=== PATIENT | female | born 1990 | race Caucasian/White ===

== ENCOUNTER 2017-05-18 00:46 | Observation (INO) | payer MEDICAID ==
[~2017-05-18] VITALS: Ht 157.5 cm; Wt 90.7 kg
[2017-05-18 01:30] LABS: APPEARANCE,URINE Cloudy (CLEAR); BILIRUBIN,URINE Negative (NEGATIVE); COLOR,URINE Yellow (YELLOW); GLUCOSE, URINE (UA) Negative (NEGATIVE); KETONES,URINE Negative (NEGATIVE); LEUKOCYTE ESTERASE ,URINE Moderate (NEGATIVE); NITRATE,URINE Negative (NEGATIVE); OCCULT BLOOD,URINE Negative (NEGATIVE); PH,URINE 6.5 (5.0-8.0); PROTEIN,URINE Negative (NEGATIVE); UROBILINOGEN,URINE 0.2 mg/dL (0.2-1.0)
[2017-05-18 01:43] LABS: BACTERIA,URINE Many /HPF (None Seen); RBC,URINE None Seen /HPF (0-1); SQUAMOUS EPITHELIAL CELL,UR Many /LPF (0-2)
== END 2017-05-18 02:00 | disposition home or self-care (01) ==
LOC: EDH 00:46 → LDH 01:08
PROVIDERS: ADMIT Obstetrics & Gynecology; ATTEND Obstetrics & Gynecology
DX: O26.893 Other specified pregnancy related conditions, third trimester (principal); O75.82 Onset (spontaneous) of labor after 37 completed weeks of gestation but before 39 completed weeks gestation, with delivery by (planned) cesarean section; R10.30 Lower abdominal pain, unspecified; Z3A.37 37 weeks gestation of pregnancy
CPT/HCPCS: 81001; 99285; G0378

== ENCOUNTER 2017-06-02 10:45 | Inpatient (IN) | payer MEDICAID ==
[~2017-06-02] VITALS: Ht 157.5 cm; Wt 93.4 kg
[2017-06-02 12:29] LABS: HEMATOCRIT 31.5 % (36-48); MEAN CORPUSCULAR HEMOGLOBIN 24.8 pg (27.0-33.0); PLATELET COUNT (AUTO) 241 K/uL (130-400); RED CELL DISTRIBUTION WIDTH 18.3 % (11.0-15.5); WHITE BLOOD COUNT (AUTO) 8.4 K/uL (4.8-10.8)
[2017-06-03] MEDS ORDERED: CEFAZOLIN SODIUM 1 GM VIAL IVP PRN (06:00)
[2017-06-03] MEDS: LACTATED RINGERS 1000ML 1,000 ML IV SCH (06:20)
[2017-06-03] MEDS ORDERED: EPHEDRINE-NS PF 50MG/5ML SYRINGE IV ONE (06:41)
[2017-06-03] MEDS ORDERED: FENTANYL CITRATE PF 50 MCG/1 ML 2ML VIAL ONE (06:59)
[2017-06-03] MEDS ORDERED: ONDANSETRON HCL 4 MG/2 ML VIAL ONE (07:03)
[2017-06-03] MEDS ORDERED: OXYTOCIN 10 UNIT/1ML 10ML VIAL ONE (07:03)
[2017-06-03] MEDS ORDERED: DEXAMETHASONE SOD PHOSPHATE 10MG/ML 1ML VIAL ONE (07:10)
[2017-06-03] MEDS ORDERED: OXYTOCIN 10 USP UNITS/ML ONE (07:41)
[2017-06-03 08:59] VITALS: BP 121/78
[2017-06-03 10:22] LABS: HEPATITIS Bs ANTIGEN SCREEN P Negative (Negative)
[2017-06-03 11:13] VITALS: BP 128/77
[2017-06-03] MEDS ORDERED: OXYTOCIN-LR 20 UNITS/1000 ML 1,000 ML IV PRN (12:22)
[2017-06-03] MEDS ORDERED: MEPERIDINE-PF 75 MG/ML SYG IM PRN (12:30)
[2017-06-03] MEDS ORDERED: SODIUM CHLORIDE 0.9% 10 ML VIAL IVP PRN (12:30)
[2017-06-03] MEDS ORDERED: PROMETHAZINE HCL 25 MG/ML 1ML AMPULE IM PRN ×2 (12:30→13:00)
[2017-06-03] MEDS ORDERED: MORPHINE SULFATE 2 MG/ML 1ML SYG IVP PRN (13:00)
[2017-06-03] MEDS ORDERED: EPHEDRINE SULFATE 50 MG/ML AMPULE IVP PRN (13:00)
[2017-06-03] MEDS ORDERED: HYDROCODONE/ACETAMINOPHEN 5/325 MG TAB PO PRN (13:00)
[2017-06-03] MEDS ORDERED: METOCLOPRAMIDE 10 MG/2 ML VIAL IVP PRN (13:00)
[2017-06-03] MEDS ORDERED: ONDANSETRON HCL 4 MG/2 ML 8 MG in SODIUM CHLORIDE 0.9% 50 ML IVP NR (13:00)
[2017-06-03] MEDS ORDERED: NALOXONE HCL 0.4 MG/1 ML ML IVP PRN (13:00)
[2017-06-03] MEDS ORDERED: ONDANSETRON HCL 4 MG/2 ML VIAL IVP PRN ×2 (13:00)
[2017-06-03] MEDS ORDERED: DiphenhydrAMINE HCL 50 MG/ML VIAL IVP PRN (13:00)
[2017-06-03] MEDS: DEXTROSE 5 %-0.45 % NACL 1,000 ML IV PRN ×2 (15:29→22:51)
[2017-06-03 15:56] VITALS: BP 121/63
[2017-06-03] MEDS ORDERED: PNV1TABL17 PO (18:52)
[2017-06-03] MEDS: FLU VACC QS2017-18 36MOS UP/PF 60 MCG/0.5 ML ML IM NR (19:02)
[2017-06-03] MEDS: HYDROCODONE/ACETAMINOPHEN 5/325 MG TAB PO PRN (19:03)
[2017-06-03 20:00] VITALS: BP 105/68
[2017-06-03 23:31] VITALS: BP 128/73
[2017-06-04 03:00] VITALS: BP 137/75
[2017-06-04] MEDS: HYDROCODONE/ACETAMINOPHEN 5/325 MG TAB PO PRN ×2 (03:05→23:33)
[2017-06-04 05:30] LABS: HEMATOCRIT 27.2 % (36-48); MEAN CORPUSCULAR HGB CONC 32.1 g/dL (32.0-36.0); MEAN CORPUSCULAR VOLUME 74.6 fL (79-99); PLATELET COUNT (AUTO) 232 K/uL (130-400); RED BLOOD CELL COUNT(AUTO) 3.64 MIL/uL (4.00-5.50); RED CELL DISTRIBUTION WIDTH 18.4 % (11.0-15.5); WHITE BLOOD COUNT (AUTO) 11.7 K/uL (4.8-10.8)
[2017-06-04] MEDS: DEXTROSE 5 %-0.45 % NACL 1,000 ML IV PRN (05:30)
[2017-06-04] MEDS: LACTATED RINGERS 1000ML 1,000 ML IV SCH ×2 (06:00→22:00)
[2017-06-04 07:48] VITALS: BP 114/73
[2017-06-04] MEDS ORDERED: ACETAMINOPHEN EXTRA STRENGTH 500 MG TABLET PO PRN (08:00)
[2017-06-04] MEDS ORDERED: BISACODYL 10 MG SUPP.RECT RC PRN (08:00)
[2017-06-04] MEDS ORDERED: LANOLIN 30GM OINTMENT TP PRN (08:00)
[2017-06-04] MEDS: ACETAMINOPHEN-CODEINE 300/30MG TAB PO PRN ×2 (08:57→18:32)
[2017-06-04] MEDS: SIMETHICONE 80 MG TAB.CHEW PO PRN ×2 (08:57→21:21)
[2017-06-04] MEDS: DOCUSATE SODIUM 100 MG CAP PO SCH ×2 (08:58→21:21)
[2017-06-04] MEDS: DIPH,PERTUSS(ACELL),TET VAC/PF 0.5 ML VIAL IM SCH (08:58)
[2017-06-04 11:29] VITALS: BP 122/65
[2017-06-04] MEDS: FLU VACC QS2017-18 36MOS UP/PF 60 MCG/0.5 ML ML IM NR (11:45)
[2017-06-04] MEDS: IBUPROFEN 600 MG TABLET PO PRN (14:06)
[2017-06-04 16:00] VITALS: BP 122/80
[2017-06-04 20:10] VITALS: BP 116/79
[2017-06-04 23:31] VITALS: BP 110/70
[2017-06-05] MEDS: FLU VACC QS2017-18 36MOS UP/PF 60 MCG/0.5 ML ML IM NR (01:36)
[2017-06-05] MEDS: LACTATED RINGERS 1000ML 1,000 ML IV SCH ×3 (01:37→07:36)
[2017-06-05] MEDS: DIPH,PERTUSS(ACELL),TET VAC/PF 0.5 ML VIAL IM SCH (01:38)
[2017-06-05 03:06] VITALS: BP 130/63
[2017-06-05] MEDS: IBUPROFEN 600 MG TABLET PO PRN ×2 (04:11→09:43)
[2017-06-05 07:36] VITALS: BP 126/72
[2017-06-05] MEDS: DOCUSATE SODIUM 100 MG CAP PO SCH (09:42)
[2017-06-05] MEDS: SIMETHICONE 80 MG TAB.CHEW PO PRN (09:42)
== END 2017-06-05 12:00 | disposition home or self-care (01) | DRG 540 ==
LOC: EDSTATUS 10:45 → LDH 06-03 05:40 → WSH 06-03 08:58
PROVIDERS: ADMIT Obstetrics & Gynecology; ATTEND Obstetrics & Gynecology
PROC: 3E0234Z Introduction of Serum, Toxoid and Vaccine into Muscle, Percutaneous Approach (ICD-10-PCS; 2017-06-03)
PROC: 3E0234Z Introduction of Serum, Toxoid and Vaccine into Muscle, Percutaneous Approach (ICD-10-PCS; 2017-06-03)
PROC: 10D00Z1 Extraction of Products of Conception, Low, Open Approach (ICD-10-PCS; principal; 2017-06-03 07:00)
DX: O34.211 Maternal care for low transverse scar from previous cesarean delivery (principal); O99.824 Streptococcus B carrier state complicating childbirth; Z37.0 Single live birth; Z3A.39 39 weeks gestation of pregnancy; Z23 Encounter for immunization
CPT/HCPCS: 36415; 59510; 85027; 86592; 86850; 86900; 86901; 87340; 90715; A4344; A4450; A4606; J0690; J1100; J2405; J2590; J3010; J3490; J7120; Q2038

== ENCOUNTER 2017-06-08 13:55 | Emergency (ER) | payer MEDICAID ==
[~2017-06-08 13:55] MED LIST: PNV1TABL17 PO
== END 2017-06-08 14:55 | disposition home or self-care (01) ==
LOC: EDH 13:55
DX: O90.89 Other complications of the puerperium, not elsewhere classified (principal); S86.911A Strain of unspecified muscle(s) and tendon(s) at lower leg level, right leg, initial encounter; Z79.899 Other long term (current) drug therapy; X58.XXXA Exposure to other specified factors, initial encounter; Y93.89 Activity, other specified; Y92.89 Other specified places as the place of occurrence of the external cause; Y99.8 Other external cause status
CPT/HCPCS: 93971

== ENCOUNTER 2017-06-12 12:26 | Inpatient (IN) | payer MEDICAID ==
[~2017-06-12] VITALS: Ht 157.5 cm; Wt 84.0 kg
[2017-06-12] MEDS ORDERED: ENOXAPARIN SODIUM 100 MG/1 ML SQ ONE (14:33)
[2017-06-12 14:38] LABS: BASOPHILS % (AUTO) 0.9 % (0.0-5.0); EOSINOPHILS % (AUTO) 0.7 % (0.0-8.0); HEMATOCRIT 33.6 % (36-48); LYMPHOCYTES % (AUTO) 28.3 % (21.0-51.0); MEAN CORPUSCULAR HEMOGLOBIN 23.7 pg (27.0-33.0); MEAN CORPUSCULAR HGB CONC 31.9 g/dL (32.0-36.0); MEAN CORPUSCULAR VOLUME 74.2 fL (79-99); MONOCYTES % (AUTO) 6.3 % (3.0-13.0); NEUTROPHILS % (AUTO) 63.8 % (40.0-77.0); NUCLEATED RED BLOOD CELLS 0.1 % (0.0-0.19); PLATELET COUNT (AUTO) 378 K/uL (130-400); RED BLOOD CELL COUNT(AUTO) 4.53 MIL/uL (4.00-5.50); RED CELL DISTRIBUTION WIDTH 18.8 % (11.0-15.5)
[2017-06-12 14:50] LABS: CREATININE 0.7 mg/dL (0.5-1.5); POTASSIUM 3.6 mmol/L (3.5-5.1)
[2017-06-12 14:58] LABS: INR 0.97 (0.85-1.15); PARTIAL THROMBOPLASTIN TIME 27.9 SEC (26.3-35.5); PROTHROMBIN TIME 10.2 SEC (9.6-11.6)
[2017-06-12] MEDS ORDERED: ACETAMINOPHEN-CODEINE 300/30MG TAB PO PRN (15:00)
[2017-06-12] MEDS ORDERED: MORPHINE SULFATE 2 MG/ML 1ML SYG IV PRN (15:00)
[2017-06-12 15:33] VITALS: BP 130/76
[2017-06-12 19:19] VITALS: BP 129/69
[2017-06-12 23:00] VITALS: BP 112/74
[2017-06-12] MEDS: ENOXAPARIN SODIUM 80 MG/0.8 ML SQ SCH (23:09)
[2017-06-13] VITALS (7 sets, daily range): BP systolic 119–145; BP diastolic 69–92
[2017-06-13] MEDS ORDERED: IOPAMIDOL-370 75 ML VIAL IV ONE (03:54)
[2017-06-13] MEDS: PANTOPRAZOLE SODIUM 40 MG TABLET.DR PO SCH (09:37)
[2017-06-13] MEDS: ENOXAPARIN SODIUM 80 MG/0.8 ML SQ SCH (09:37)
[2017-06-13] MEDS ORDERED: APIXABAN 5 MG TABLET PO SCH ×2 (12:00→21:00)
[2017-06-14] VITALS: BP 119/76
[2017-06-14 04:05] VITALS: BP 128/75
[2017-06-14] MEDS: PANTOPRAZOLE SODIUM 40 MG TABLET.DR PO SCH (06:37)
[2017-06-14 07:00] VITALS: BP 112/59
[2017-06-14 07:22] LABS: APPEARANCE,URINE Cloudy (CLEAR); BILIRUBIN,URINE Negative (NEGATIVE); COLOR,URINE Dark Yellow (YELLOW); GLUCOSE, URINE (UA) Negative (NEGATIVE); KETONES,URINE Negative (NEGATIVE); LEUKOCYTE ESTERASE ,URINE Moderate (NEGATIVE); NITRATE,URINE Negative (NEGATIVE); OCCULT BLOOD,URINE Large (NEGATIVE); PH,URINE 5.5 (5.0-8.0); PROTEIN,URINE Negative (NEGATIVE)
[2017-06-14 07:28] LABS: BACTERIA,URINE Few /HPF (None Seen); MUCUS,URINE Rare LPF (None Seen); RBC,URINE 0-1 /HPF (0-1); SQUAMOUS EPITHELIAL CELL,UR Few /LPF (0-2); WBC,URINE >100 /HPF (0-1)
[2017-06-14 11:00] VITALS: BP 123/73
[2017-06-14] MEDS ORDERED: PANT40TA PO (11:06)
[2017-06-14] MEDS ORDERED: APIX5TAB PO (11:06)
[2017-06-14 16:00] VITALS: BP 119/74
[2017-06-14] MEDS ORDERED: CEFD300C3 PO (17:15)
== END 2017-06-14 19:05 | disposition home or self-care (01) | DRG 561 ==
LOC: EDH 12:26 → WSH 12:27 → 3DH 06-13 05:53
PROVIDERS: ADMIT Family Medicine; ATTEND Family Medicine
DX: O88.23 Thromboembolism in the puerperium (principal); I82.431 Acute embolism and thrombosis of right popliteal vein; O87.1 Deep phlebothrombosis in the puerperium
CPT/HCPCS: 36415; 71275; 80048; 81001; 85025; 85378; 85610; 85730; 93005; 93971; J1650; Q9967

== ENCOUNTER → 2018-10-30 | Outpatient (CLI) | payer MEDICAID ==
[~2018-10-30] MED LIST changes: +APIX5TAB PO; +CEFD300C3 PO; +PANT40TA PO
== END | disposition home or self-care (01) ==
LOC: RAH 15:00
PROVIDERS: ATTEND Internal Medicine Hematology & Oncology
DX: R22.41 Localized swelling, mass and lump, right lower limb (principal)
CPT/HCPCS: 93971